=== PATIENT | male | born 1965 | race Caucasian/White ===

== ENCOUNTER 2017-03-20 18:13 | Emergency (ER) | payer OTHER ==
[~2017-03-20 18:13] MED LIST: ACETAMINOPHEN325 MG PO; ASPIRIN EC81 MG PO; B-1100 MG PO; BETAPACE120 MG PO; CHLORDIAZEPOXID25 MG PO; DAILY VITE1 EACH PO; FISH OIL 1,0001 EAC3 PO; FOLIC ACID1 MG PO; LIDODERM700 MG TOP; LIPITOR20 MG PO; NALTREXONE HCL50 MG PO; NEURONTIN600 MG PO; NICOTINE TRANSD21 MG TOP; NITROQUICK0.4 MG SL; PHENERGAN25 M1 PO; SPIRIVA18 MCG IH; VALIUM5 MG PO; VENTOLIN HFA8 GM IH; XARELTO20 MG PO; ZYLOPRIM100 MG PO
== END 2017-03-21 10:58 | disposition critical access hospital (66) ==
LOC: ER 18:13
DX: G81.94 Hemiplegia, unspecified affecting left nondominant side (principal); J44.9 Chronic obstructive pulmonary disease, unspecified; K21.9 Gastro-esophageal reflux disease without esophagitis; I25.10 Atherosclerotic heart disease of native coronary artery without angina pectoris; I10 Essential (primary) hypertension; E78.5 Hyperlipidemia, unspecified; F17.210 Nicotine dependence, cigarettes, uncomplicated; Z90.49 Acquired absence of other specified parts of digestive tract; Z79.82 Long term (current) use of aspirin; Z79.899 Other long term (current) drug therapy
CPT/HCPCS: 36415; 80307